=== PATIENT | female | born 1945 | race Caucasian/White ===

== ENCOUNTER → 2018-02-20 10:32 | Outpatient (CLI) | payer MEDICARE ==
--- NOTE | ~2018-02-20 | EC ---
PATIENT:KADEN LIMA DATE OF SERVICE: 02/20/18 SEX: F MEDICAL RECORD: [id number] DATE OF : 41 LOCATION:[facility] AGE OF PATIENT: 72 ADMISSION DATE: 02/20/18 REFERRING PHYSICIAN: INTERPRETING PHYSICIAN: VIJAYA LEÓN MD ECHOCARDIOGRAM REPORT ECHO CHARGES 4 ECHO COMPLETE Date: 02/20 CLINICAL DIAGNOSIS: ECHOCARDIOGRAPHIC MEASUREMENTS (adult normal given) AC root (d.<3.7cm) 1.7 cm LV Septum d (<1.2 cm> 1.2 cm Valve Excursion 1.1 cm LV Septum (systole) 1.4 cm Left Atria (s.<4.0cm> 3.4 cm LVPW d(<1.2cm) 0.8 cm RV (d.<2.3cm) 2.6 cm LVPW (sytole) 1.3 cm LV diastole(<5.6CM) 4.2 cm MV E-F(>70mm/sec) cm LV systole 3.0 cm LVOT Diameter 1.7 cm MV exc.(>10mm) cm Est.ejection fraction (50-75%) % DOPPLER: LVIT cm/sec A 107 cm/sec E 58 cm/sec LA cm/sec RVSP 35.5 mmHg LVOT 124 cm/sec AOP1/2T m/s Asc. 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 FINDINGS: 1. Left ventricle shows evidence of left ventricular hypertrophy. Inflow characteristics consistent with diastolic dysfunction. Ejection fraction is 65%. 2. The left atrium is normal. 3. Aortic valve is normal. ECHOCARDIOGRAM REPORT [id number] KADEN LIMA 4. The mitral valve is normal. 5. The tricuspid valve is normal with trace to mild tricuspid regurgitation. RVSP is normal. CONCLUSIONS: The patient has evidence of mild hypertensive heart disease, preserved left ventricular systolic function otherwise normal echocardiogram. Of note, is persistent bradycardia throughout the exam, heart rates in the 50s. TRANSINT:[id number] Voice Confirmation ID: [id number] DOCUMENT ID: [id number] VIJAYA LEÓN MD at 1435 CC: [id number] DICTATION DATE: 02/23/18 1116 QA TECH: 02/23/18 1139 DEP CLI 02/20/18 [place] [id number] [place] [id number]
== END | disposition home or self-care (01) ==
LOC: D.ECHO 10:32
DX: R42 Dizziness and giddiness (principal); R06.00 Dyspnea, unspecified; R00.1 Bradycardia, unspecified

== ENCOUNTER → 2018-02-28 16:46 | Outpatient (CLI) | payer MEDICARE ==
[2018-02-28 17:59] LABS: CHOL - HDL RATIO 5.5 ratio (2.3-4.1); LDL-HDL RATIO 3.6 ratio (1.5-3.5)
== END | disposition home or self-care (01) ==
LOC: D.LABREF 16:46
PROVIDERS: Internal Medicine Cardiovascular Disease
DX: I10 Essential (primary) hypertension (principal)

== ENCOUNTER → 2018-03-29 17:18 | Outpatient (CLI) | payer MEDICARE ==
[2018-03-29 18:53] LABS: CHOL - HDL RATIO 3.1 ratio (2.3-4.1); LDL-HDL RATIO 1.5 ratio (1.5-3.5)
== END | disposition home or self-care (01) ==
LOC: D.LABREF 17:18
PROVIDERS: Internal Medicine Cardiovascular Disease
DX: E78.5 Hyperlipidemia, unspecified (principal)